=== PATIENT | female | born 1975 | race Caucasian/White ===

== ENCOUNTER 2017-06-26 14:37 | Observation (INO) | payer MEDICAID ==
[~2017-06-26] VITALS: Ht 167.6 cm; Wt 126.3 kg
[~2017-06-26 14:37] MED LIST: BUPR100T8 PO; GABA300C10 PO; LEVO75TA5 PO; LISI-167 PO; NABU750T PO; QUET200T4 PO; TRAM50TA2 PO
[2017-06-26 15:04] LABS: BASOPHILS % (AUTO) 1 % (0-1); EOSINOPHILS # (AUTO) 0.11 x10^3/uL (0-0.4); EOSINOPHILS % (AUTO) 1 % (1-7); LYMPHOCYTES # (AUTO) 3.93 x10^3/uL (1-3.4); LYMPHOCYTES % (AUTO) 31 % (22-44); MD NO; MEAN CORPUSCULAR HEMOGLOBIN 24.4 pg (27.0-34.8); MEAN CORPUSCULAR HGB CONC 32.2 g/dL (32.4-35.8); MEAN CORPUSCULAR VOLUME 75.6 fL (80-100); MONOCYTES # (AUTO) 0.66 x10^3/uL (0.2-0.8); MONOCYTES % (AUTO) 5 % (2-9); NEUTROPHILS # (AUTO) 8.03 x10^3/uL (1.8-6.8); NEUTROPHILS % (AUTO) 63 % (42-75); PLATELET COUNT 420 x10^3/uL (130-400); RED BLOOD COUNT 4.74 x10^6/uL (3.82-5.3); RED CELL DISTRIBUTION WIDTH 16.6 % (9.6-15.2)
[2017-06-26 15:16] LABS: ALANINE AMINOTRANSFERASE 30 U/L (12-78); ALBUMIN 3.3 g/dL (3.4-5.0); ANION GAP 10 mmol/L (5-15); CALCIUM 8.2 mg/dL (8.5-10.1); CHLORIDE 108 mmol/L (98-107)
[2017-06-26 15:18] LABS: AMPHETAMINE SCREEN, URINE Negative (Negative); BARBITURATE SCREEN, URINE Negative (Negative); BENZODIAZEPINE SCREEN, URINE Negative (Negative); CANNABINOID SCREEN, URINE Negative (Negative); COCAINE SCREEN, URINE Negative (Negative); METHADONE SCREEN, URINE Negative (Negative); OPIATE SCREEN, URINE Negative (Negative)
[2017-06-26 15:19] LABS: SALICYLATE LEVEL < 1.7 mg/dL (2.8-20.0)
[2017-06-26 15:21] LABS: ALKALINE PHOSPHATASE 90 U/L (45-117); BILIRUBIN,TOTAL 0.2 mg/dL (0.2-1.0); TOTAL PROTEIN 7.5 g/dL (6.4-8.2)
[2017-06-26 15:27] LABS: ACETAMINOPHEN < 2 mcg/mL (10-30)
[2017-06-26] MEDS ORDERED: ACETAMINOPHEN 325 MG TABLET PO PRN (17:00)
[2017-06-26] MEDS ORDERED: LORazepam 1MG TABLET PO PRN (17:00)
[2017-06-26] MEDS ORDERED: DOCUSATE 100 MG CAPSULE PO PRN (17:00)
[2017-06-26] MEDS ORDERED: ONDANSETRON ODT 4 MG PO PRN (17:00)
[2017-06-26] MEDS ORDERED: POLYETHYLENE GLYCOL 17 GM PACKET PO PRN (17:00)
[2017-06-26] MEDS ORDERED: BISACODYL 10 MG SUPP PR PRN (17:00)
[2017-06-26 17:27] LABS: FREE T4 (FREE THYROXINE) 0.93 ng/dL (0.76-1.46); THYROID STIMULATING HORMONE 1.01 mIU/L (0.358-3.740)
[2017-06-26 20:03] VITALS: BP 123/78
[2017-06-26] MEDS ORDERED: GABAPENTIN 300 MG CAPSULE PO SCH (21:00)
[2017-06-26] MEDS ORDERED: QUETIAPINE 200 MG TABLET PO SCH (21:00)
[2017-06-26] MEDS ORDERED: NABUMETONE 500 MG TABLET PO SCH (21:00)
[2017-06-27] MEDS ORDERED: LEVOTHYROXINE 75 MCG TABLET PO SCH (09:00)
[2017-06-27] MEDS ORDERED: LISINOPRIL 10 MG TABLET PO SCH (09:00)
== END 2017-06-27 04:03 ==
LOC: ED 15:32 → EDIP 16:45 → INTOOBSV 16:45 → 2N 18:05
PROVIDERS: ADMIT Internal Medicine; ATTEND Internal Medicine
DX: R45.851 Suicidal ideations (principal); D72.829 Elevated white blood cell count, unspecified; G25.81 Restless legs syndrome; F31.9 Bipolar disorder, unspecified; D64.9 Anemia, unspecified; E03.9 Hypothyroidism, unspecified; E44.0 Moderate protein-calorie malnutrition; I11.9 Hypertensive heart disease without heart failure; Z82.49 Family history of ischemic heart disease and other diseases of the circulatory system; Z91.14 Patient's other noncompliance with medication regimen
CPT/HCPCS: 36415; 80053; 80307; 80329; 84439; 84443; 84703; 85025; 93005; 99285; G0378; G0480

== ENCOUNTER 2017-08-12 16:31 | Observation (INO) | payer MEDICAID ==
[~2017-08-12] VITALS: Ht 167.6 cm; Wt 123.0 kg
[2017-08-12] MEDS ORDERED: HYDR25TA6 PO (17:55)
[2017-08-12] MEDS ORDERED: ACET1TAB64 PO (17:56)
[2017-08-12] MEDS ORDERED: BENZ200C48 PO (17:57)
[2017-08-12] MEDS ORDERED: QUET100T4 PO (17:58)
[2017-08-12] MEDS ORDERED: BUPR200T31 PO (18:00)
[2017-08-12] MEDS ORDERED: TRAM50TA2 PO (18:01)
[2017-08-12] MEDS ORDERED: ACAM333T7 PO (18:03)
[2017-08-12 18:04] LABS: HCG UR SG 1.036 (1.003-1.030); MICROSCOPIC NOT IND
[2017-08-12] MEDS ORDERED: ZOLP-413 PO (18:04)
[2017-08-12] MEDS ORDERED: MEDR10TA PO (18:04)
[2017-08-12] MEDS ORDERED: METH750T2 PO (18:05)
[2017-08-12] MEDS ORDERED: ERGO500017 PO (18:06)
[2017-08-12 18:09] LABS: CULTURE INDICATED? NO
[2017-08-12 18:13] LABS: AMPHETAMINE SCREEN, URINE Positive (Negative); BARBITURATE SCREEN, URINE Negative (Negative); BENZODIAZEPINE SCREEN, URINE Negative (Negative); CANNABINOID SCREEN, URINE Negative (Negative); COCAINE SCREEN, URINE Negative (Negative); METHADONE SCREEN, URINE Negative (Negative); OPIATE SCREEN, URINE Negative (Negative)
[2017-08-12] MEDS ORDERED: FLU60SYR30 IM (18:14)
[2017-08-12 18:15] LABS: ACETAMINOPHEN < 2 mcg/mL (10-30); SALICYLATE LEVEL < 1.7 mg/dL (2.8-20.0)
[2017-08-12] MEDS ORDERED: EPIN0.3P3 IM (18:16)
[2017-08-12] MEDS ORDERED: LEVO75TA5 PO (18:17)
[2017-08-12] MEDS ORDERED: MONT10TA9 PO (18:17)
[2017-08-12 18:34] LABS: MEAN CORPUSCULAR HGB CONC 32.4 g/dL (32.4-35.8); MEAN PLATELET VOLUME 9.1 fL (7.4-10.4); PLATELET COUNT 250 x10^3/uL (130-400); RED BLOOD COUNT 4.58 x10^6/uL (3.82-5.3)
[2017-08-12 18:36] LABS: MD SCAN
[2017-08-12 18:37] LABS: BASOPHILS # (AUTO) 0.04 x10^3/uL (0-0.1); BASOPHILS % (AUTO) 0 % (0-1); EOSINOPHILS # (AUTO) 0.18 x10^3/uL (0-0.4); EOSINOPHILS % (AUTO) 2 % (1-7); LYMPHOCYTES # (AUTO) 3.21 x10^3/uL (1-3.4); LYMPHOCYTES % (AUTO) 27 % (22-44); MONOCYTES # (AUTO) 0.58 x10^3/uL (0.2-0.8); MONOCYTES % (AUTO) 5 % (2-9); NEUTROPHILS # (AUTO) 8.14 x10^3/uL (1.8-6.8); NEUTROPHILS % (AUTO) 67 % (42-75)
[2017-08-12 19:22] LABS: ANION GAP 7 mmol/L (5-15); CHLORIDE 111 mmol/L (98-107); CREATININE 0.59 mg/dL (0.55-1.02)
[2017-08-12] MEDS ORDERED: METHOCARBAMOL 750 MG TABLET PO PRN (22:30)
[2017-08-12] MEDS ORDERED: DOCUSATE 100 MG CAPSULE PO PRN (22:30)
[2017-08-12] MEDS ORDERED: APAP/CODEINE 300/30MG TABLET PO PRN (22:30)
[2017-08-12 23:25] VITALS: BP 125/85
[2017-08-12 23:26] LABS: FREE T4 (FREE THYROXINE) 1.25 ng/dL (0.76-1.46); THYROID STIMULATING HORMONE 0.948 mIU/L (0.358-3.740)
[2017-08-13] MEDS: NABUMETONE 500 MG TABLET PO SCH ×3 (00:48→20:47)
[2017-08-13] MEDS: BUPROPION SR 100 MG TABLET PO SCH ×3 (00:50→20:45)
[2017-08-13] MEDS: GABAPENTIN 300 MG CAPSULE PO SCH ×4 (00:50→20:44)
[2017-08-13] MEDS: QUETIAPINE 100MG TABLET PO SCH ×2 (00:50→20:44)
[2017-08-13] MEDS: BENZONATATE 100 MG CAPSULE PO SCH ×4 (00:51→20:45)
[2017-08-13] MEDS ORDERED: ACAMPROSATE 333 MG TABLET.DR PO SCH (09:00)
[2017-08-13 09:24] VITALS: BP 101/68
[2017-08-13] MEDS: MEDROXYPROGESTERONE ACETATE 5 MG TABLET PO SCH (09:27)
[2017-08-13] MEDS: HYDROCHLOROTHIAZIDE 25 MG TABLET PO SCH (09:28)
[2017-08-13] MEDS: LISINOPRIL 10 MG TABLET PO SCH (09:28)
[2017-08-13] MEDS: MONTELUKAST 10 MG TABLET PO SCH (09:28)
[2017-08-13] MEDS: LEVOTHYROXINE 75 MCG TABLET PO SCH (09:29)
[2017-08-13] MEDS: ACAMPROSATE 333 MG TABLET.DR PO SCH ×2 (16:58→20:56)
[2017-08-13 17:24] VITALS: BP 112/75
[2017-08-13 19:53] VITALS: BP 106/66
[2017-08-14 08:23] VITALS: BP 119/72
[2017-08-14] MEDS: MONTELUKAST 10 MG TABLET PO SCH (08:35)
[2017-08-14] MEDS: BUPROPION SR 100 MG TABLET PO SCH (08:36)
[2017-08-14] MEDS: ACAMPROSATE 333 MG TABLET.DR PO SCH (08:36)
[2017-08-14] MEDS: LEVOTHYROXINE 75 MCG TABLET PO SCH (08:36)
[2017-08-14] MEDS: BENZONATATE 100 MG CAPSULE PO SCH (08:36)
[2017-08-14] MEDS: LISINOPRIL 10 MG TABLET PO SCH (08:37)
[2017-08-14] MEDS: HYDROCHLOROTHIAZIDE 25 MG TABLET PO SCH (08:37)
[2017-08-14] MEDS: GABAPENTIN 300 MG CAPSULE PO SCH (08:37)
[2017-08-14] MEDS: MEDROXYPROGESTERONE ACETATE 5 MG TABLET PO SCH (08:37)
[2017-08-14] MEDS: NABUMETONE 500 MG TABLET PO SCH (08:38)
[2017-08-14] MEDS ORDERED: ERGOCALCIFEROL 50,000 UNIT CAPSULE PO SCH (09:00)
== END 2017-08-14 11:00 ==
LOC: ED 21:50 → EDIP 22:10 → 3E 23:23
PROVIDERS: ADMIT Internal Medicine; ATTEND Internal Medicine
DX: R45.851 Suicidal ideations (principal); F31.9 Bipolar disorder, unspecified; F15.10 Other stimulant abuse, uncomplicated; G89.29 Other chronic pain; I10 Essential (primary) hypertension; E66.01 Morbid (severe) obesity due to excess calories; E03.9 Hypothyroidism, unspecified; G25.81 Restless legs syndrome
CPT/HCPCS: 36415; 80048; 80307; 80329; 81003; 81025; 84439; 84443; 84703; 85025; 99285; G0378; G0480

== ENCOUNTER 2018-09-04 07:25 | Emergency (ER) | payer MEDICAID ==
[~2018-09-04] VITALS: Ht 167.6 cm; Wt 118.3 kg
[~2018-09-04 07:25] MED LIST changes: +ACAM333T7 PO; +ACET1TAB64 PO; +BENZ200C48 PO; +BUPR200T31 PO; +EPIN0.3P3 IM; +ERGO500017 PO; +FLU60SYR30 IM; +HYDR25TA6 PO; +MEDR10TA PO; +METH750T2 PO; +MONT10TA9 PO; +QUET100T4 PO; +ZOLP-413 PO
--- NOTE | 2018-09-04 07:42 | NUR ---
PT AMBULATORY TO ROOM 39 W/ C/O FEELING SUICIDAL AFTER PT WAS [facility] AFTER BEING SX W/ MRSA AND HAVING SORED TO R HIP. PT STATES SHE HAS BEEN FEELING SUICIDAL BUT HAS NO CURRENT PLAN TO HURT HERFSELF OR OTHER PEOPLE. CURRENTLY DENIES HI. PT STATES HX PILL OD 1 MONTH AGO. DID NOT SEEK MEDICAL HELP THEN. PT RESTING ON GURNEY. NADN. VSS IN TRIAGE. PT CALM AND COOPERATIVE. ROOM SECURED. SITTER REQUESTED FOR PT. PERSONAL BELONGINGS REMOVED AND PLACED IN SECURE LOCKER.
[2018-09-04 08:14] LABS: ALANINE AMINOTRANSFERASE 43 U/L (12-78); ALBUMIN 3.2 g/dL (3.4-5.0); ANION GAP 4 mmol/L (5-15); CALCIUM 8.1 mg/dL (8.5-10.1); CHLORIDE 110 mmol/L (98-107); CREATININE 0.78 mg/dL (0.55-1.02)
[2018-09-04 08:17] LABS: SALICYLATE LEVEL < 1.7 mg/dL (2.8-20.0)
[2018-09-04] MEDS ORDERED: ABILIFY PO (08:17)
[2018-09-04] MEDS ORDERED: SERT100T32 PO (08:17)
[2018-09-04] MEDS ORDERED: IBUP-1223 PO (08:17)
[2018-09-04 08:20] LABS: ALKALINE PHOSPHATASE 94 U/L (45-117); BILIRUBIN,TOTAL 0.3 mg/dL (0.2-1.0); TOTAL PROTEIN 6.9 g/dL (6.4-8.2)
[2018-09-04 08:23] LABS: AMPHETAMINE SCREEN, URINE Positive (Negative); BARBITURATE SCREEN, URINE Negative (Negative); BENZODIAZEPINE SCREEN, URINE Negative (Negative); CANNABINOID SCREEN, URINE Negative (Negative); COCAINE SCREEN, URINE Negative (Negative); METHADONE SCREEN, URINE Negative (Negative); OPIATE SCREEN, URINE Negative (Negative)
[2018-09-04 08:23] LABS: ACETAMINOPHEN < 2 mcg/mL (10-30)
[2018-09-04 08:27] LABS: BASOPHILS # (AUTO) 0.05 x10^3/uL (0-0.1); BASOPHILS % (AUTO) 0 % (0-1); EOSINOPHILS # (AUTO) 0.12 x10^3/uL (0-0.4); EOSINOPHILS % (AUTO) 1 % (1-7); LYMPHOCYTES # (AUTO) 2.84 x10^3/uL (1-3.4); LYMPHOCYTES % (AUTO) 27 % (22-44); MD NO; MEAN CORPUSCULAR HEMOGLOBIN 25.1 pg (27.0-34.8); MEAN CORPUSCULAR HGB CONC 32.3 g/dL (32.4-35.8); MEAN CORPUSCULAR VOLUME 77.8 fL (80-100); MEAN PLATELET VOLUME 7.8 fL (7.4-10.4); MONOCYTES # (AUTO) 0.49 x10^3/uL (0.2-0.8); MONOCYTES % (AUTO) 5 % (2-9); NEUTROPHILS % (AUTO) 67 % (42-75); PLATELET COUNT 409 x10^3/uL (130-400); RED BLOOD COUNT 4.61 x10^6/uL (3.82-5.3); RED CELL DISTRIBUTION WIDTH 16.9 % (9.6-15.2)
[2018-09-04 08:31] LABS: CULTURE INDICATED? YES; MICROSCOPIC AUTO
[2018-09-04] MEDS ORDERED: CEFDINIR 300 MG CAPSULE ONE (08:53)
--- NOTE | 2018-09-04 08:53 | NUR ---
PT MEDICATED PER JUL AND PROVIDED W/ BREAKFAST MEAL TRAY.
[2018-09-04] MEDS ORDERED: CEFDINIR 300 MG CAPSULE PO SCH (09:00)
--- NOTE | 2018-09-04 09:02 | NUR ---
CALLED [facility] FOR ASSESSMENT
--- NOTE | 2018-09-04 10:17 | NUR ---
[facility] AT BEDSIDE.
--- NOTE | 2018-09-04 11:09 | NUR ---
[facility] STATES [facility] WILL KEEP PT ON LEGAL HOLD.
--- NOTE | 2018-09-04 11:25 | NUR ---
PACKET FAXED TO [facility], [facility], [facility]
--- NOTE | 2018-09-04 12:15 | NUR ---
SPOKE W/ PT WHO STATES SHE WAS KICKED OUT OF STEP 2. PT STATES SHE WAS NEVER TESTED FOR MRSA BUT WAS TOLD SHE HAD MRSA. PT HAS NO OPEN WOUNDS. PT HAS NO HX OF MRSA IN CHART.
--- NOTE | 2018-09-04 12:17 | NUR ---
PT PROVIDED W/ SI LUNCH TRAY. SITTER REMAINS AT BEDSIDE. ROOM REMAINS SECURE.
--- NOTE | 2018-09-04 12:20 | NUR ---
[facility] DENIED SECONDARY TO REPORT OF MRSA. INFORMED CALLER THAT IT WAS NOT A DIAGNOSED MRSA AND PT HAS NO OPEN WOUNDS. CALLER SAID SHE WOULD REPRESENT TO RN
--- NOTE | 2018-09-04 13:57 | NUR ---
PT RESTING ON GURNEY. NADN. [place].
--- NOTE | 2018-09-04 14:42 | NUR ---
PT RESTING ON GURNEY. NADN. [place].
--- NOTE | 2018-09-04 15:20 | NUR ---
Break RN note: Pt resting in bed with eyes closed, resp even and unlabored, NADN. Room remains secured, sitter within eyesight of pt, all safety measures observed.
--- NOTE | 2018-09-04 16:03 | NUR ---
PT PROVIDED W/ SI DINNER TRAY.
[2018-09-04 16:39] VITALS: BP 108/74
--- NOTE | 2018-09-04 16:40 | NUR ---
PT RESTING ON TERRY. ALDAIR. VSS. SITTER REMAINS AT BEDSIDE. ROOM REMAINS SECURE.
== END 2018-09-04 18:03 ==
LOC: ED 08:34
DX: F33.9 Major depressive disorder, recurrent, unspecified (principal); F15.10 Other stimulant abuse, uncomplicated; N30.00 Acute cystitis without hematuria; F41.1 Generalized anxiety disorder; I10 Essential (primary) hypertension; E03.9 Hypothyroidism, unspecified; Z72.9 Problem related to lifestyle, unspecified
CPT/HCPCS: 36415; 80053; 80307; 80329; 81001; 84703; 85025; 87086; 99285; G0480

== ENCOUNTER 2018-09-19 19:30 | Emergency (ER) | payer MEDICAID ==
[~2018-09-19] VITALS: Ht 167.6 cm; Wt 120.7 kg
[~2018-09-19 19:30] MED LIST changes: +ABILIFY PO; +IBUP-1223 PO; +SERT100T32 PO
[2018-09-19 19:38] VITALS: BP 111/76
[2018-09-19] MEDS ORDERED: IBUPROFEN 800 MG TABLET PO ONE (20:00)
[2018-09-19] MEDS ORDERED: IBUPROFEN 200 MG TABLET ONE (20:00)
--- NOTE | 2018-09-19 20:19 | NUR ---
[facility] LONG AT BEDSIDE TO UPDATE PT WITH RESULTS AND POC. PT PROVIDED WITH ICE PACK TO LEFT KNEE, LEFT LEG ELEVATED.
--- NOTE | 2018-09-19 20:47 | NUR ---
PT'S LEFT LEG WRAPPED WITH AN DEANNA BANDAGE BY [facility]PA, PT GIVEN CANE PER EDPA'S INSTRUCTIONS. PT GIVEN DC INSTRUCTIONS. PT A&O, RESPS EVEN AND UNLABORED. PT AMB TO DC DESK USING CANE, GAIT STEADY. NADN AT DC.
== END 2018-09-19 20:48 | disposition home or self-care (01) ==
LOC: ED 20:40
DX: M25.562 Pain in left knee (principal); Z72.9 Problem related to lifestyle, unspecified; F10.10 Alcohol abuse, uncomplicated; F15.10 Other stimulant abuse, uncomplicated; E03.9 Hypothyroidism, unspecified; I10 Essential (primary) hypertension; F41.1 Generalized anxiety disorder; F31.9 Bipolar disorder, unspecified
CPT/HCPCS: 99283